=== PATIENT | male | born 1955 | race Two or more races ===

== ENCOUNTER 2023-09-04 16:36 | Inpatient (IN) | payer OTHER, MEDICARE ==
[~2023-09-04] VITALS: Ht 172.7 cm; Wt 72.9 kg
[2023-09-04] MEDS ORDERED: SODIUM CHLORIDE 0.9% 1,000 ML IVB ONE (18:15)
[2023-09-04 19:21] LABS: Basophils # (auto) 0 10 ^3/uL (0-0.2); Basophils % (auto) 0.7 % (0.0-2.0); Eosinophils # (auto) 0.1 10 ^3/uL (0-0.8); Eosinophils % (auto) 3.5 % (0.0-7.0); Hematocrit 35.5 % (41.0-53.0); Hemoglobin 11.6 g/dL (13.5-17.5); Lymphocytes # (auto) 1.1 10 ^3/uL (0.4-5.4); Lymphocytes % (auto) 32.8 % (10.0-50.0); Mean Corpuscular Hemoglobin 31.6 pg (28.0-32.0); Mean Corpuscular Hgb Conc. 32.8 g/dL (32.0-36.0); Mean Corpuscular Volume 96.3 fL (80.0-100.0); Monocytes # (auto) 0.3 10 ^3/uL (0-1.3); Monocytes % (auto) 8.4 % (0.0-12.0); Neutrophils # (auto) 1.8 10 ^3/uL (1.6-8.6); Neutrophils % (auto) 54.6 % (37.0-80.0); Nucleated Red Blood Cells % 0.1 %; Red Blood Cells 3.68 10^6/uL (4.5-5.90); Red Cell Distribution Width 16.8 % (11.8-14.3); White Blood Cell 3.3 10^3/uL (4.4-10.8)
[2023-09-04 19:36] LABS: Alanine Aminotransferase 10 U/L (7-40); Albumin 3.8 g/dL (3.2-4.8); Alkaline Phosphatase 104 U/L (46-116); Anion Gap 7 (5-15); Aspartate Aminotransferase 13 U/L (13-40); Bilirubin, Total 0.2 mg/dL (0.2-1.0); Blood Alcohol < 3.0 mg/dL (<10); Blood Urea Nitrogen 12 mg/dL (9-23); Calcium 9.8 mg/dL (8.5-10.1); Carbon Dioxide 25 mmol/L (20-30); Chloride 104 mmol/L (98-107); Glucose 70 mg/dL (74-106); Potassium 4.2 mmol/L (3.5-5.1); Sodium 136 mmol/L (136-145); Total Protein 7.2 g/dL (5.7-8.2)
[2023-09-04 20:48] VITALS: PULSE 52; RESP 13; O2SAT 96
[2023-09-04] MEDS ORDERED: DOCUSATE SOD 100 MG CAP PO PRN (23:00)
[2023-09-04] MEDS ORDERED: ACETAMINOPHEN 325 MG TAB PO PRN (23:00)
[2023-09-04] MEDS ORDERED: NITROGLYCERIN 0.4 MG SL TAB SL PRN (23:00)
[2023-09-04] MEDS ORDERED: ONDANSETRON HCL 4 MG/2 ML VIAL IV PRN (23:00)
[2023-09-04] MEDS ORDERED: MORPHINE SULFATE INJ 2 MG/ml SYRG IV PRN (23:00)
[2023-09-05 02:49] LABS: Urine Bacteria NONE SEEN /hpf (None Seen); Urine Blood Negative /uL (Negative); Urine Clarity Clear (Clear); Urine Protein, UAD Negative (Negative); Urine Specific Gravity 1.008 (1.001-1.035); Urine Urobilinogen Normal (Negative); Urine WBC 1 /hpf (0 - 3)
[2023-09-05 02:51] LABS: Urine Color Straw (Yellow)
[2023-09-05 03:28] LABS: Amphetamine Screen, Urine Neg (NEGATIVE); Benzodiazephine Screen, Urine Neg (NEGATIVE)
[2023-09-05 03:29] LABS: Barbiturate Scree,Urine Neg (NEGATIVE); Cannabinoid Screen, Urine Neg (NEGATIVE); Cocaine Screen, Urine Neg (NEGATIVE); Opiate Scree,Urine Neg (NEGATIVE); Phencyclidine Screen, Urine Neg (NEGATIVE)
[2023-09-05 05:32] LABS: Basophils # (auto) 0 10 ^3/uL (0-0.2); Basophils % (auto) 0.7 % (0.0-2.0); Eosinophils # (auto) 0.1 10 ^3/uL (0-0.8); Eosinophils % (auto) 3.6 % (0.0-7.0); Hematocrit 35.8 % (41.0-53.0); Hemoglobin 11.7 g/dL (13.5-17.5); Lymphocytes # (auto) 1.1 10 ^3/uL (0.4-5.4); Lymphocytes % (auto) 31.9 % (10.0-50.0); Mean Corpuscular Hemoglobin 31.5 pg (28.0-32.0); Mean Corpuscular Hgb Conc. 32.8 g/dL (32.0-36.0); Mean Corpuscular Volume 96.3 fL (80.0-100.0); Monocytes # (auto) 0.3 10 ^3/uL (0-1.3); Monocytes % (auto) 8.3 % (0.0-12.0); Neutrophils # (auto) 1.9 10 ^3/uL (1.6-8.6); Neutrophils % (auto) 55.5 % (37.0-80.0); Nucleated Red Blood Cells % 0.1 %; Red Blood Cells 3.71 10^6/uL (4.5-5.90); Red Cell Distribution Width 17.1 % (11.8-14.3); White Blood Cell 3.4 10^3/uL (4.4-10.8)
[2023-09-05 05:42] LABS: Albumin 3.8 g/dL (3.2-4.8); Alkaline Phosphatase 106 U/L (46-116); Anion Gap 4 (5-15); Aspartate Aminotransferase 13 U/L (13-40); BUN/Creatinine Ratio 10.5 (10.0-20.0); Bilirubin, Total 0.3 mg/dL (0.2-1.0); Blood Urea Nitrogen 14 mg/dL (9-23); Calcium 9.5 mg/dL (8.7-10.4); Carbon Dioxide 27 mmol/L (20-30); Chloride 106 mmol/L (98-107); Glucose 76 mg/dL (74-106); Potassium 4.1 mmol/L (3.5-5.1); Sodium 137 mmol/L (136-145)
[2023-09-05 05:43] LABS: Total Protein 7.3 g/dL (5.7-8.2)
[2023-09-05 05:44] LABS: Alanine Aminotransferase < 9 U/L (7-40)
[2023-09-05] MEDS: ASCORBIC ACID 500 MG TAB PO SCH ×2 (10:00→20:13)
[2023-09-05] MEDS ORDERED: MULTIPLE VITAMIN TAB ONE (10:14)
[2023-09-05] MEDS ORDERED: ZINC SULFATE 220mg CAP or TAB ONE (10:16)
[2023-09-05] MEDS ORDERED: ENOXAPARIN SOD 40 MG/0.4 ML SYRINGE SC ONE ×2 (10:16→10:20)
[2023-09-05] MEDS: MULTIPLE VITAMIN TAB PO SCH (10:20)
[2023-09-05] MEDS: ZINC SULFATE 220mg CAP or TAB PO SCH (10:20)
[2023-09-05] MEDS: ENOXAPARIN SOD 40 MG/0.4 ML SYRINGE SC SCH (10:20)
[2023-09-05] MEDS ORDERED: AMLO1TAB23 PO (13:51)
[2023-09-05] MEDS ORDERED: BICT1TAB PO (13:51)
[2023-09-05] MEDS: Bictegravir-Emtricitabine-Teno (Biktarvy 50-200-25 mg) 1 TAB PO SCH (14:00)
[2023-09-05] MEDS ORDERED: SULFAMETHOX W/TRIMETH(800/160MG) DS TAB PO ONE (14:29)
[2023-09-05] MEDS: SULFAMETHOX W/TRIMETH(800/160MG) DS TAB PO SCH (14:29)
[2023-09-05 15:10] VITALS: BP 118/77; PULSE 60; RESP 16; TEMP 97.7; O2SAT 100
[2023-09-05 15:20] VITALS: RESP 18; O2SAT 99
[2023-09-05 17:00] VITALS: BP 117/83; PULSE 71; RESP 19; TEMP 98.1; O2SAT 100
[2023-09-05 20:00] VITALS: PULSE 66
[2023-09-05] MEDS ORDERED: ASCORBIC ACID 500 MG TAB ONE (20:10)
[2023-09-05 22:00] VITALS: BP 113/74; PULSE 73; RESP 15; TEMP 97.4; O2SAT 100
[2023-09-06 05:00] VITALS: BP 116/68; PULSE 72; RESP 14; TEMP 98; O2SAT 98
[2023-09-06 05:54] VITALS: BP 116/68; PULSE 72; RESP 14; TEMP 98; O2SAT 98
[2023-09-06 08:00] VITALS: PULSE 60; PULSE 63; O2SAT 97
[2023-09-06] MEDS: Bictegravir-Emtricitabine-Teno (Biktarvy 50-200-25 mg) 1 TAB PO SCH (09:10)
[2023-09-06] MEDS: amLODIPine BESYLATE 5 MG TAB PO SCH (10:00)
[2023-09-06] MEDS: ASCORBIC ACID 500 MG TAB PO SCH ×2 (10:00→22:00)
[2023-09-06] MEDS ORDERED: MULTIPLE VITAMIN TAB ONE (10:02)
[2023-09-06] MEDS ORDERED: SULFAMETHOX W/TRIMETH(800/160MG) DS TAB PO ONE (10:02)
[2023-09-06] MEDS ORDERED: ZINC SULFATE 220mg CAP or TAB ONE (10:02)
[2023-09-06] MEDS ORDERED: ENOXAPARIN SOD 40 MG/0.4 ML SYRINGE SC ONE (10:02)
[2023-09-06] MEDS: AZITHROMYCIN 500MG/ 250ML 250 ML IV SCH (10:05)
[2023-09-06] MEDS: SULFAMETHOX W/TRIMETH(800/160MG) DS TAB PO SCH (10:05)
[2023-09-06] MEDS: ENOXAPARIN SOD 40 MG/0.4 ML SYRINGE SC SCH (10:05)
[2023-09-06] MEDS: MULTIPLE VITAMIN TAB PO SCH (10:05)
[2023-09-06] MEDS: ZINC SULFATE 220mg CAP or TAB PO SCH (10:05)
[2023-09-06] MEDS ORDERED: AZITHROMYCIN 500MG/ 250ML 250 ML IV ONE (10:05)
[2023-09-06] MEDS ORDERED: cefTRIAXone 1GM/50ML D5W 50 ML IV ONE (15:49)
[2023-09-06] MEDS: cefTRIAXone 1GM/50ML D5W 50 ML IV SCH (16:03)
[2023-09-06 19:30] VITALS: BP 99/63; PULSE 49; PULSE 58; RESP 16; TEMP 98.7; O2SAT 99
[2023-09-06 21:23] VITALS: BP 99/63; PULSE 58; RESP 16; TEMP 98.7; O2SAT 99
[2023-09-06] MEDS ORDERED: ASCORBIC ACID 500 MG TAB ONE (21:33)
[2023-09-07] VITALS (8 sets, daily range): BP systolic 99–124; BP diastolic 56–79; PULSE 42–83; RESP 15–18; TEMP 96.8–98.8; O2SAT 94–100
[2023-09-07] MEDS: cefTRIAXone 1GM/50ML D5W 50 ML IV SCH (08:51)
[2023-09-07] MEDS: amLODIPine BESYLATE 5 MG TAB PO SCH (09:49)
[2023-09-07] MEDS: Bictegravir-Emtricitabine-Teno (Biktarvy 50-200-25 mg) 1 TAB PO SCH (09:49)
[2023-09-07] MEDS: MULTIPLE VITAMIN TAB PO SCH (10:02)
[2023-09-07] MEDS: ENOXAPARIN SOD 40 MG/0.4 ML SYRINGE SC SCH (10:02)
[2023-09-07] MEDS: ZINC SULFATE 220mg CAP or TAB PO SCH (10:02)
[2023-09-07] MEDS: SULFAMETHOX W/TRIMETH(800/160MG) DS TAB PO SCH (10:03)
[2023-09-07] MEDS: AZITHROMYCIN 500MG/ 250ML 250 ML IV SCH (10:03)
[2023-09-07] MEDS: ASCORBIC ACID 500 MG TAB PO SCH ×2 (10:05→22:08)
[2023-09-07] MEDS ORDERED: ATROPINE SULF 1 MG/10ml SYR IV PRN (18:00)
[2023-09-08] VITALS (9 sets, daily range): BP systolic 117–162; BP diastolic 68–94; PULSE 36–96; RESP 18; TEMP 97.4–98.3; O2SAT 96–100
[2023-09-08 06:30] LABS: Basophils # (auto) 0 10 ^3/uL (0-0.2); Eosinophils # (auto) 0.1 10 ^3/uL (0-0.8); Eosinophils % (auto) 5.5 % (0.0-7.0); Hematocrit 33.1 % (41.0-53.0); Hemoglobin 10.9 g/dL (13.5-17.5); Lymphocytes # (auto) 0.9 10 ^3/uL (0.4-5.4); Lymphocytes % (auto) 34.6 % (10.0-50.0); Mean Corpuscular Hemoglobin 31.6 pg (28.0-32.0); Mean Corpuscular Hgb Conc. 32.9 g/dL (32.0-36.0); Mean Corpuscular Volume 96.1 fL (80.0-100.0); Monocytes # (auto) 0.3 10 ^3/uL (0-1.3); Monocytes % (auto) 10.1 % (0.0-12.0); Neutrophils # (auto) 1.3 10 ^3/uL (1.6-8.6); Neutrophils % (auto) 48.8 % (37.0-80.0); Red Blood Cells 3.45 10^6/uL (4.5-5.90); Red Cell Distribution Width 16.8 % (11.8-14.3); White Blood Cell 2.6 10^3/uL (4.4-10.8)
[2023-09-08 06:33] LABS: Alanine Aminotransferase 12 U/L (7-40); Albumin 3.8 g/dL (3.2-4.8); Alkaline Phosphatase 94 U/L (46-116); Anion Gap 4 (5-15); Aspartate Aminotransferase 19 U/L (13-40); BUN/Creatinine Ratio 14.3 (10.0-20.0); Bilirubin, Total 0.2 mg/dL (0.2-1.0); Blood Urea Nitrogen 23 mg/dL (9-23); Calcium 9.3 mg/dL (8.7-10.4); Carbon Dioxide 26 mmol/L (20-30); Chloride 105 mmol/L (98-107); Glucose 85 mg/dL (74-106); Magnesium 2.1 mg/dL (1.6-2.6); Phosphorus 3.2 mg/dL (2.4-5.1); Potassium 4.2 mmol/L (3.5-5.1); Sodium 135 mmol/L (136-145)
[2023-09-08 06:34] LABS: Total Protein 7.1 g/dL (5.7-8.2)
[2023-09-08] MEDS: ENOXAPARIN SOD 40 MG/0.4 ML SYRINGE SC SCH ×2 (10:00→10:02)
[2023-09-08] MEDS: Bictegravir-Emtricitabine-Teno (Biktarvy 50-200-25 mg) 1 TAB PO SCH (10:00)
[2023-09-08] MEDS: ZINC SULFATE 220mg CAP or TAB PO SCH (10:02)
[2023-09-08] MEDS: SULFAMETHOX W/TRIMETH(800/160MG) DS TAB PO SCH (10:02)
[2023-09-08] MEDS: cefTRIAXone 1GM/50ML D5W 50 ML IV SCH (10:02)
[2023-09-08] MEDS: MULTIPLE VITAMIN TAB PO SCH (10:02)
[2023-09-08 10:24] LABS: Folate (Folic Acid) 7.92 ng/mL (>5.38)
[2023-09-08] MEDS: AZITHROMYCIN 500MG/ 250ML 250 ML IV SCH (10:52)
[2023-09-08] MEDS: ASCORBIC ACID 500 MG TAB PO SCH ×2 (10:52→22:10)
[2023-09-08 12:45] LABS: INR 1.04 (0.9-1.15); Partial Thromboplastin Time 31.8 SEC (24.5-34.5); Prothrombin Time 10.9 sec (9.3-11.8)
[2023-09-09 04:46] VITALS: BP 125/56; PULSE 46; RESP 17; O2SAT 99
[2023-09-09 08:00] VITALS: PULSE 40
[2023-09-09] MEDS: cefTRIAXone 1GM/50ML D5W 50 ML IV SCH (08:41)
[2023-09-09 09:00] VITALS: BP 137/47; PULSE 52; RESP 16; TEMP 98.1; O2SAT 91
[2023-09-09] MEDS: AZITHROMYCIN 500MG/ 250ML 250 ML IV SCH (09:56)
[2023-09-09] MEDS: ASCORBIC ACID 500 MG TAB PO SCH (09:57)
[2023-09-09] MEDS: ENOXAPARIN SOD 40 MG/0.4 ML SYRINGE SC SCH (09:57)
[2023-09-09] MEDS: ZINC SULFATE 220mg CAP or TAB PO SCH (09:57)
[2023-09-09] MEDS: SULFAMETHOX W/TRIMETH(800/160MG) DS TAB PO SCH (09:57)
[2023-09-09] MEDS: MULTIPLE VITAMIN TAB PO SCH (09:57)
[2023-09-09] MEDS: Bictegravir-Emtricitabine-Teno (Biktarvy 50-200-25 mg) 1 TAB PO SCH (10:00)
[2023-09-09] MEDS ORDERED: BACDST PO (12:49)
[2023-09-09 13:00] VITALS: BP 126/89; PULSE 66; RESP 16; TEMP 98.2; O2SAT 92
[2023-09-09 14:28] VITALS: BP 126/89; PULSE 66; RESP 16; TEMP 98.2; O2SAT 92
[2023-09-09 16:30] VITALS: BP 136/66; PULSE 72; RESP 16; TEMP 97.7; O2SAT 92
[2023-09-10 05:07] LABS: Basos 0 % (Not Estab.); Eos 5 % (Not Estab.); Eos (Absolute) 0.2 x10E3/uL (0.0-0.4); Hemoglobin 12.5 g/dL (13.0-17.7); Lymphs 37 % (Not Estab.); Lymphs (Absolute) 1.3 x10E3/uL (0.7-3.1); MCHC 34.7 g/dL (31.5-35.7); MCV 92 fL (79-97); Monocytes 7 % (Not Estab.); Monocytes (Absolute) 0.3 x10E3/uL (0.1-0.9); Neutrophils 51 % (Not Estab.); Neutrophils (Absolute) 1.7 x10E3/uL (1.4-7.0); Platelets 248 x10E3/uL (150-450); RBC 3.91 x10E6/uL (4.14-5.80); RDW 15.7 % (11.6-15.4); WBC 3.4 x10E3/uL (3.4-10.8)
[2023-09-10 12:06] LABS: % CD 4 Pos Lymph 12.5 % (30.8-58.5); % CD 8 Pos Lymph 69.5 % (12.0-35.5); Absolute CD 4 Helper 163 /uL (359-1519); CD4/CD8 Ratio 0.18 (0.92-3.72)
== END 2023-09-09 18:42 | DRG 974 ==
LOC: ER 16:36 → TELE 22:55 → TELE-WESTW 09-05 16:04
PROVIDERS: ADMIT Internal Medicine; ATTEND Internal Medicine
DX: G93.41 Metabolic encephalopathy (principal); J69.0 Pneumonitis due to inhalation of food and vomit; B20 Human immunodeficiency virus [HIV] disease; N17.0 Acute kidney failure with tubular necrosis; J98.11 Atelectasis; E11.22 Type 2 diabetes mellitus with diabetic chronic kidney disease; E78.5 Hyperlipidemia, unspecified; F03.90 Unspecified dementia, unspecified severity, without behavioral disturbance, psychotic disturbance, mood disturbance, and anxiety; G40.909 Epilepsy, unspecified, not intractable, without status epilepticus; I12.9 Hypertensive chronic kidney disease with stage 1 through stage 4 chronic kidney disease, or unspecified chronic kidney disease; I25.10 Atherosclerotic heart disease of native coronary artery without angina pectoris; N18.9 Chronic kidney disease, unspecified; Z86.73 Personal history of transient ischemic attack (TIA), and cerebral infarction without residual deficits; R91.1 Solitary pulmonary nodule; Z74.01 Bed confinement status
CPT/HCPCS: 36415; 70450; 70551; 71045; 71250; 80053; 80307; 80320; 81001; 82607; 82746; 83735; 84100; 84443; 85025; 85610; 85730; 86360; 87040; 87081; 93306; 95819; 97163; G0378